=== PATIENT | male | born 1980 | race Caucasian/White ===

== ENCOUNTER 2019-10-12 16:14 | Inpatient (IN) | payer MEDICAID, SELFPAY ==
[~2019-10-12] VITALS: Ht 165.1 cm; Wt 68.5 kg
[2019-10-12 16:21] VITALS: BP_SYST 140
--- NOTE | 2019-10-12 17:01 | NUR ---
Patient to ER bed 8 to gown for evaluation. Side rails up. Report given to Amy MACK.
--- NOTE | 2019-10-12 17:10 | NUR ---
Pt. presents to the ED BLS with c/o SOB and cough x3 days. He was sent to ED for eval by PMD. Pt. A&Ox4. Cap refill <4 seconds. Pt. denies n/v/d and is afebrile at this time. Pt.'s temp was 99.7 and states that he took Tylenol prior to visit.
--- NOTE | 2019-10-12 17:11 | NUR ---
ROSELYN Navarrete at bedside examining patient.
[2019-10-12] MEDS ORDERED: NACL 0.9% 1,000 ML IV ONE ×2 (17:15→20:45)
--- NOTE | 2019-10-12 17:15 | NUR ---
20 G angiocath placed to the left brachial artery. Pt. placed on 3L nasal cannula and improvment in 02 sat improved from 80s to now 99%
[2019-10-12 17:58] LABS: HEMATOCRIT 35.6 % (36-54); HEMOGLOBIN 11.9 g/dL (14.0-18.0); MEAN CORPUSCULAR HEMOGLOBIN 32 pg (27-31); MEAN CORPUSCULAR HGB CONC 34 % (32-36); MEAN CORPUSCULAR VOLUME 97 fL (79.0-98.0); PLATELET COUNT (AUTO) 210 K/uL (130-430); RED BLOOD CELL COUNT(AUTO) 3.69 MIL/uL (4.2-6.2); RED CELL DISTRIBUTION WIDTH 14.1 % (9.0-15.0); WHITE BLOOD COUNT (AUTO) 16.5 K/uL (4.8-10.8)
[2019-10-12] MEDS ORDERED: IOHEXOL 350 mgI/mL, 150 ML INFUS..BTL IV ONE (18:06)
[2019-10-12] MEDS ORDERED: HYDR20TA PO (18:18)
[2019-10-12] MEDS ORDERED: HYD10 PO (18:18)
[2019-10-12] MEDS ORDERED: MERCAP50 PO (18:21)
[2019-10-12] MEDS ORDERED: ALBU2.5V7 INH (18:22)
--- NOTE | 2019-10-12 18:22 | NUR ---
Medication reconciliation completed with information provided by Patient. Any prior medication reconciliation on file was reviewed and corrected.
[2019-10-12 18:39] LABS: BAND % (MANUAL) 13 % (0-6); BASOPHILS % (MANUAL) 0 % (0-2); EOSINOPHILS % (MANUAL) 0 % (0-7); LYMPHOCYTES % (MANUAL) 6 % (20-46); MONOCYTES % (MANUAL) 4 % (0-11)
[2019-10-12 18:59] LABS: ANION GAP 10 (5-15); CALCIUM 7.1 mg/dL (8.4-11.0); CHLORIDE 108 mmol/L (98-107); CREATININE 1.16 mg/dL (0.55-1.30); GLUCOSE 102 mg/dL (70-99); SODIUM SERUM 139 mmol/L (136-145); UREA NITROGEN, BLOOD 8 mg/dL (8-21)
[2019-10-12 19:01] LABS: GFR AFRICAN AMERICAN 89 mL/min (>90); POTASSIUM 2.9 mmol/L (3.5-5.1)
[2019-10-12 19:11] LABS: ASPARTATE AMINOTRANSFERASE 36 U/L (10-37); TOTAL BILIRUBIN 0.6 mg/dL (0.0-1.0)
[2019-10-12 19:12] LABS: ALANINE AMINOTRANSFERASE 30 U/L (12-78); ALBUMIN 2.5 g/dL (3.4-4.8)
[2019-10-12] MEDS ORDERED: POTASSIUM CHLORIDE 20 MEQ TAB.PRT.SR PO ONE (19:15)
[2019-10-12] MEDS ORDERED: CLINDAMYCIN 900 mg/50mL D5W 50 ML IV ONE (20:30)
[2019-10-12] MEDS ORDERED: cefTRIAXone 1 GM in D5W 50 ML IV ONE (20:30)
[2019-10-12] MEDS ORDERED: ACETAMINOPHEN 500 MG TABLET PO ONE (20:30)
[2019-10-12] MEDS ORDERED: cefTRIAXone 1 GM VIAL ONE (20:50)
--- NOTE | 2019-10-12 21:00 | NUR ---
# 20 gauge angiocath placed to RT upper arm. Use of asceptic technique. Opsite placed over site. Blood return noted. Flushed with 10 cc of normal saline. No evidence of infiltration noted. Patient tolerated well.
--- NOTE | 2019-10-12 21:10 | NUR ---
Patient will be admitted to care of Dr. Soto. Admitted to Telemetry unit. Belongings list completed. Complete and up to date summary report printed. SBAR report to be given at bedside with opportunity for questions.
--- NOTE | 2019-10-12 22:28 | NUR ---
ADMIT NOTE Received pt from ER to the floor with a diagnosis of sepsis. Admission process initiated. patient oriented to pain management, safety and call light-teach back done.
--- NOTE | 2019-10-12 22:30 | NUR ---
Opening notes Patient is resting in bed. Walks with steady gait. No assistance required. No signs of distress noted. Breathing even and unlabored. O2 sat 100% on room air. IV patent and intact, currently infusing NS bolus. Oriented patient to room and call light. Patient verbalized understanding. Patient asking about home medication hydrocortisone, and has not taken today. Will inform MD. Call light with the patient. Safety precautions in place.
[2019-10-12] MEDS: AZITHROMYCIN 500 MG in NS 250 ML IV SCH (23:15)
[2019-10-12 23:26] VITALS: BP_SYST 107
--- NOTE | 2019-10-12 23:30 | NUR ---
Spoke to Dr. Figueroa informed MD about patient's home medication. Okay to give one dose now.
[2019-10-12] MEDS ORDERED: HYDROCORTISONE 10 MG TABLET (CORTEF) PO ONE (23:45)
[2019-10-12] MEDS ORDERED: MERCAPTOPURINE 50 MG TABLET PO ONE (23:45)
[2019-10-13] VITALS (7 sets, daily range): BP systolic 102–111
[2019-10-13] MEDS ORDERED: PIPERACILLIN/TAZOBACTAM 3.375 GM/VIAL (ZOSYN) IV ONE (00:09)
[2019-10-13] MEDS ORDERED: AZITHROMYCIN 500 MG/VIAL (ZITHROMAX) IV ONE (00:09)
--- NOTE | 2019-10-13 00:32 | NUR ---
CONSULT: CONSULT CALLED FOR DR. KNIGHT I SPOKE WITH FRANKLYN ROTHMAN REASON FOR CONSULT: PUI REQUESTING CONSULT: DR. HARTMANN COMMUNITY EDUCATION SPECIALIST PHONE NUMBER: [phone]
[2019-10-13] MEDS: PIPERACILLIN/TAZO 3.375/DEX-IS 50 ML IV SCH ×4 (00:33→18:02)
[2019-10-13] MEDS: NACL 0.9% 1,000 ML IV SCH ×3 (00:34→18:02)
--- NOTE | 2019-10-13 01:00 | NUR ---
RN rounds Patient resting in bed. Complaining of headache and ear ache. PRN pain medication given. Educated the action and side effects of medications. Patient tolerated well. Continuous pulse ox placed on patient. O2 sat 97%. Emptied 800 ml from urinal. Provided patient with apple juice and jello. No other needs. Call light with the patient. Safety precautions in place.
[2019-10-13] MEDS: HYDROcodone/ACETAMIN 5-325 MG TAB (NORCO/ VICODIN) PO PRN ×5 (01:03→22:14)
--- NOTE | 2019-10-13 03:00 | NUR ---
RN rounds Patient is resting in bed. No signs of distress noted. Breathing even and unlabored. IVF infusing well. No needs at this time. Call light with the patient. Safety precautions in place.
--- NOTE | 2019-10-13 05:00 | NUR ---
RN rounds Patient in bed, watching TV. No signs of distress noted. Breathing even and unlabored. IVF infusing well. No needs at this time. Call light with the patient. Safety precautions in place.
--- NOTE | 2019-10-13 05:55 | NUR ---
DR. LAZO IS AWARE OF THE CONSULT I PAGED HIM AND HE CALLED DONNELL
--- NOTE | 2019-10-13 06:46 | NUR ---
Closing notes Patient is resting in bed. No signs of distress noted. Breathing even and unlabored. IV patent and intact, infusing ABX. Patient complains of headache, PRN pain medication given. Educated the action and side effects of medications. Patient verbalized understanding and tolerated well. Provided patient with orange juice and ice water. All needs met throughout the shift. Call light with the patient. Safety precautions in place. Will endorse care to day shift RN.
[2019-10-13 07:17] LABS: BASOPHILS % (AUTO) 0.3 % (0.0-2.0); EOSINOPHILS % (AUTO) 0.1 % (0.0-4.0); HEMATOCRIT 35.3 % (36-54); HEMOGLOBIN 11.9 g/dL (14.0-18.0); LYMPHOCYTES # (AUTO) 0.4 K/uL (1.0-5.5); LYMPHOCYTES % (AUTO) 2.6 % (20.5-51.5); MEAN CORPUSCULAR HEMOGLOBIN 32 pg (27-31); MEAN CORPUSCULAR HGB CONC 34 % (32-36); MEAN CORPUSCULAR VOLUME 96 fL (79.0-98.0); MONOCYTES # (AUTO) 1.2 K/uL (0.0-1.0); MONOCYTES % (AUTO) 7.7 % (1.7-9.3); NEUTROPHILS # (AUTO) 14.3 K/uL (1.8-7.7); NEUTROPHILS % (AUTO) 89.3 % (40.0-70.0); PLATELET COUNT (AUTO) 216 K/uL (130-430)
[2019-10-13 07:30] LABS: ALBUMIN 2.5 g/dL (3.4-4.8); CALCIUM 7.3 mg/dL (8.4-11.0); CREATININE 1.18 mg/dL (0.55-1.30); POTASSIUM 3.4 mmol/L (3.5-5.1); TOTAL BILIRUBIN 0.8 mg/dL (0.0-1.0)
[2019-10-13] MEDS ORDERED: MERCAPTOPURINE 50 MG PO SCH (09:00)
--- NOTE | 2019-10-13 09:30 | NUR ---
nonproductive cough noted. patient requesting inhaler and cough medicine. pt using inhaler at home. paged MD de luna. awaited to callback
[2019-10-13] MEDS: HYDROCORTISONE 10 MG TABLET (CORTEF) PO SCH ×2 (10:15→20:07)
[2019-10-13] MEDS ORDERED: LINEZOLID 300 ML IV ONE (11:00)
--- NOTE | 2019-10-13 11:14 | NUR ---
Case mgt: Attempted to call pt's room for DCPA information (Covid-pending)-Called room ext [phone] [phone] but no answer and nurse Hannah unavailable to s/w on phone--will call back later--BLAYNE MACK
--- NOTE | 2019-10-13 11:39 | NUR ---
MRSA SAMPLE COLLECTED AND SENT TO LAB. MRSA SCREEN NARES.
--- NOTE | 2019-10-13 12:08 | NUR ---
Case mgt:Called pt in room (Covid pending)-pt is alert/oriented x3--lives at home with parents--independent with ADLs--drives self--dc plan is to go home with parents at discharge--f/u for dc planning needs-- RN
--- NOTE | 2019-10-13 13:02 | NUR ---
Dietitian Recommendations *Recommend continuing Cardiac diet per MD orders. *Recommend: Ensure Enlive BID. ONS will provide additional 700 kcal and 40gm protein daily. Please see Nutrition F/U note for details. ORACIO COLLIER
--- NOTE | 2019-10-13 15:50 | NUR ---
Patient is walking in side the room. went to the restroom. voided and have bm verbalized loose. hx of IBS.
[2019-10-13] MEDS ORDERED: guaiFENesin ER 600 MG TAB PO SCH (16:00)
[2019-10-13] MEDS ORDERED: ALBUTEROL MDI INH PRN (16:00)
--- NOTE | 2019-10-13 16:03 | NUR ---
MD DRUMMOND ( FREIGHT COORDINATOR)IS HERE. INFORMED ABOUT PATIENT CONCERNED. NEW ORDER RECEIVED AND CARRIED OUT.
[2019-10-13] MEDS ORDERED: POTASSIUM CHLORIDE 20 MEQ TAB.PRT.SR PO ONE (16:30)
[2019-10-13] MEDS ORDERED: ALBUTEROL MDI INHALATION 8 GM INH INH PRN (16:45)
[2019-10-13] MEDS ORDERED: ALBUTEROL SULFATE 0.083% 2.5 MG/3 ML VIAL.NEB INH PRN (17:00)
[2019-10-13] MEDS ORDERED: guaiFENesin ER 600 MG TAB PO ONE (17:00)
[2019-10-13] MEDS ORDERED: BENZONATATE 100 MG CAPSULE (TESSALON) PO ONE (17:00)
--- NOTE | 2019-10-13 17:00 | NUR ---
TB GOLD BLOOD ORDERED 1204 ROUTINE. PULP COOKER CHANGED TIME T0 1600. BLOOD NOT DRAWN NOR NOTIFY NURSE ABOUT THE CHANGE.
--- NOTE | 2019-10-13 17:30 | NUR ---
nishant Cedeño. waiting to callback.
--- NOTE | 2019-10-13 18:03 | NUR ---
MD CHAVIRA INFORMED ABOUT THE INCIDENT. STATED MAKE SURE WILL DRAW TOMORROW MORNING THE TB GOLD.
[2019-10-13] MEDS: ALBUTEROL SULFATE 0.083% 2.5 MG/3 ML VIAL.NEB INH SCH (19:00)
--- NOTE | 2019-10-13 19:00 | NUR ---
ALL NEEDS METS. NO S/S OF DISTRESS, VITAL SIGN STABLE, AFEBRILE. WILL ENDORSED TO INCOMING NURSE.
--- NOTE | 2019-10-13 19:30 | NUR ---
Opening notes Received report. Patient is resting in bed. No signs of distress noted. Breathing even and unlabored. IV patent and intact, infusing fluids. Patient requesting water. Will bring in. No other needs. Call light with the patient. Safety precautions in place.
[2019-10-13] MEDS: LINEZOLID 300 ML IV SCH (20:03)
--- NOTE | 2019-10-13 20:15 | NUR ---
Medications given. Educated the action and side effects of medications. Patient verbalized understanding and tolerated well. Provided patient with ice water and orange juice. No other needs. Informed patient that a sputum sample is needed. But patient is unable to produce any sputum, mostly saliva. No other needs. Call light with the patient. Safety precautions in place.
[2019-10-13] MEDS: AZITHROMYCIN 500 MG in NS 250 ML IV SCH (22:15)
--- NOTE | 2019-10-13 22:30 | NUR ---
RN rounds Patient resting in bed. Complaining of headache. PRN pain medication given. Educated the action and side effects of medications. Patient verbalized understanding and tolerated well. No other needs. Call light with the patient. Safety precautions in place.
--- NOTE | 2019-10-14 00:30 | NUR ---
RN rounds Patient resting in bed. Watching TV. Patient complaining it is too hot. Temperature adjusted. VSS. No other needs. Call light with the patient. Safety precautions in place.
[2019-10-14 00:45] VITALS: BP_SYST 108
[2019-10-14] MEDS: PIPERACILLIN/TAZO 3.375/DEX-IS 50 ML IV SCH ×4 (00:45→17:54)
--- NOTE | 2019-10-14 02:45 | NUR ---
RN rounds Patient is resting in bed. No signs of distress noted. Breathing even and unlabored. IVF infusing well. No needs. Call light with the patient. Safety precautions in place.
--- NOTE | 2019-10-14 04:30 | NUR ---
RN rounds Patient resting in bed. No signs of distress noted. Breathing even and unlabored. IVF infusing well. Provided patient with ice water. No other needs. Call light with the patient. Safety precautions in place.
[2019-10-14] MEDS: NACL 0.9% 1,000 ML IV SCH (05:55)
[2019-10-14] MEDS: HYDROcodone/ACETAMIN 5-325 MG TAB (NORCO/ VICODIN) PO PRN ×3 (05:56→21:05)
--- NOTE | 2019-10-14 06:38 | NUR ---
Closing notes Patient is resting in bed. No signs of distress noted. Breathing even and unlabored. IV patent and intact, infusing IVF. Patient complains of headache, PRN pain medication given. Educated the action and side effects of medications. Patient verbalized understanding and tolerated well. All needs met throughout the shift. Call light with the patient. Safety precautions in place. Will endorse care to day shift RN.
[2019-10-14] MEDS: ALBUTEROL SULFATE 0.083% 2.5 MG/3 ML VIAL.NEB INH SCH ×4 (07:00→19:00)
--- NOTE | 2019-10-14 07:38 | NUR ---
OPENING NOTE Patient resting in the bed. No acute distress. Denied of pain at this time. Skin warm and dry to touch. IV intact to PRISCILLA and SL to DEUCE, no redness, no swelling, patent. On NS at 100ml/hr, infusing well. Discussed the safety issue, use call light when needs help, and plan of care, verbally understanding. Safety measure maintained. Call light within reached. Bed locked in low position, side rails up. Refused bed alarm, risk and benefit explained, verbally understanding. Isolation maintained. Will continue to monitor.
[2019-10-14 07:50] VITALS: BP_SYST 117
[2019-10-14] MEDS: LINEZOLID 300 ML IV SCH ×2 (09:52→20:35)
[2019-10-14] MEDS: HYDROCORTISONE 10 MG TABLET (CORTEF) PO SCH ×2 (09:53→20:35)
[2019-10-14] MEDS: guaiFENesin ER 600 MG TAB PO SCH ×2 (09:53→20:35)
[2019-10-14] MEDS: BENZONATATE 100 MG CAPSULE (TESSALON) PO SCH ×2 (09:53→20:35)
--- NOTE | 2019-10-14 09:55 | NUR ---
AM SCHEDULE MED GIVEN, TOLERATED WELL.
[2019-10-14] MEDS ORDERED: MERCAPTOPURINE 50 MG PO SCH (10:08)
--- NOTE | 2019-10-14 10:55 | NUR ---
SEEN BY SONNY LÓPEZ.
[2019-10-14] MEDS ORDERED: MERCAPTOPURINE 50 MG PO ONE (11:00)
--- NOTE | 2019-10-14 11:45 | NUR ---
SEEN BY HENRIETTA GARDNER.
[2019-10-14] MEDS ORDERED: ALBMDI INH (11:56)
[2019-10-14 12:00] VITALS: BP_SYST 108
--- NOTE | 2019-10-14 13:54 | NUR ---
NORCO GIVEN Patient c/o generalized pain 5/10, [place] 5/325mg 1 tab given as ordered. Patient resting in the bed. No acute distress. IV intact, IVF infusing well. Safety measure maintained. Call light within reached. Continue on isolation. Continue to monitor.
--- NOTE | 2019-10-14 15:10 | NUR ---
IV LEAKAGE Noted IV leaking to PRISCILLA, removed the IV, tip intact, no bleeding, dressing applied. Connected the IVF to DEUCE, no redness, no swelling, no drainage. Isolation maintained. Call light within reached. Bed locked in low position, side rails up. Continue to monitor.
--- NOTE | 2019-10-14 15:17 | NUR ---
DC PLANNING Received msg from Shannen @ [place], ph [phone], wants update on pt status. Called & left msg with pt update.
[2019-10-14 16:00] VITALS: BP_SYST 112
--- NOTE | 2019-10-14 17:00 | NUR ---
ROUND Patient resting in the bed and talking to the phone. No acute distress. IV intact, IVF infusing well. Safety measure maintained. Call light within reached. Continue on isolation. Continue to monitor.
--- NOTE | 2019-10-14 18:50 | NUR ---
CLOSING NOTE Patient resting in the bed. No acute distress. Denied of pain at this time. Skin warm and dry to touch. IV intact to DEUCE, no redness, no swelling, patent. On NS at 100ml/hr, infusing well. All needs met. Safety measure maintained. Call light within reached. Bed locked in low position, side rails up. Refused bed alarm, risk and benefit explained, verbally understanding. Isolation maintained. Will endorse to night nurse.
[2019-10-14 20:00] VITALS: BP_SYST 110
[2019-10-14] MEDS: AZITHROMYCIN 500 MG in NS 250 ML IV SCH (23:15)
[2019-10-15] VITALS: BP_SYST 97
[2019-10-15] MEDS: HYDROcodone/ACETAMIN 5-325 MG TAB (NORCO/ VICODIN) PO PRN ×5 (01:41→21:36)
[2019-10-15] MEDS: PIPERACILLIN/TAZO 3.375/DEX-IS 50 ML IV SCH ×4 (05:50→18:40)
[2019-10-15 07:55] VITALS: BP_SYST 110
--- NOTE | 2019-10-15 07:55 | NUR ---
INITIAL ROUNDS Received pt AAOx4, no s/s resp distress, pt has sporadic non-productive cough. Pt informed that we need a sputum culture. Pt on Droplet isolation precautions for R/O Covid 19. Plan of carre for the day reviewed with pt-pt verbalized his understanding. IVF infusing well to DEUCE at ordered rate with no s/s infiltration to site. Pain management, disease process, isolation precautions, skin and safety discussed-teach back done. Call light within reach.
[2019-10-15] MEDS: MERCAPTOPURINE 50 MG PO SCH (09:00)
[2019-10-15] MEDS: ALBUTEROL SULFATE 0.083% 2.5 MG/3 ML VIAL.NEB INH SCH ×3 (09:05→19:00)
[2019-10-15] MEDS: LINEZOLID 300 ML IV SCH ×2 (10:13→21:36)
[2019-10-15] MEDS: BENZONATATE 100 MG CAPSULE (TESSALON) PO SCH ×2 (10:13→21:36)
[2019-10-15] MEDS: HYDROCORTISONE 10 MG TABLET (CORTEF) PO SCH ×2 (10:13→21:36)
[2019-10-15] MEDS: guaiFENesin ER 600 MG TAB PO SCH ×2 (10:13→21:36)
[2019-10-15] MEDS: NACL 0.9% 1,000 ML IV SCH ×2 (11:09→21:51)
[2019-10-15 12:45] VITALS: BP_SYST 112
--- NOTE | 2019-10-15 13:55 | NUR ---
NEW IV Pt's IV to DEUCE no longer working, removed, no active bleeding. New IV placed to left hand, 22 gauge. Pt tolerated well. All precautions remain in place.
[2019-10-15 16:35] VITALS: BP_SYST 115
--- NOTE | 2019-10-15 17:01 | NUR ---
COVID 19 TEST covid 19 test done, Hanna MACK will take to the lab.
--- NOTE | 2019-10-15 18:45 | NUR ---
CLOSING NOTE Pt sitting up in bed eating his dinner. No s/s resp distress, no c/o pain or discomfort. IVF infusing well to left hand at ordered rate with no s/s infiltration to site. Droplet precautions maintained throughout shift. Pt given fresh ice water per request. Needs met, call light within reach.
[2019-10-15 19:50] VITALS: BP_SYST 130
--- NOTE | 2019-10-15 19:50 | NUR ---
INITIAL NOTE AT INITIAL ASSESSMENT, PATIENT IS RESTING IN BED, STABLE, NO SIGNS OF RESPIRATORY DISTRESS. PATIENT SUCCESSFULLY DEMONSTRATIONS USAGE OF CALL LIGHT AT THIS TIME. PATIENT VERBALIZES TOLERABLE PAIN AT THIS TIME. CALL LIGHT IS PLACED WITHIN REACH OF PATIENT. BED IS LOCKED, ALARMED, AND AT THE LOWEST LEVEL. FALL, SAFETY, RESPIRATORY, AND ISOLATION WILL BE TAKEN THROUGHOUT THE SHIFT.
--- NOTE | 2019-10-15 21:50 | NUR ---
NOTE SCHEDULED MEDICATION ARE GIVEN AT THIS TIME, PATIENT TOLERATED WELL. FRESH WATER PROVIDED. CALL LIGHT PLACED WITHIN REACH, BED IS LOCKED, AND AT THE LOWEST LEVEL.
[2019-10-15] MEDS: AZITHROMYCIN 500 MG in NS 250 ML IV SCH (23:20)
--- NOTE | 2019-10-15 23:50 | NUR ---
NOTE PATIENT IS SLEEPING, STABLE, NO SIGNS OF RESPIRATORY DISTRESS. CALL LIGHT PLACED WITHIN REACH, BED IS LOCKED, ALARMED, AND AT THE LOWEST LEVEL.
[2019-10-16] VITALS: BP_SYST 118
--- NOTE | 2019-10-16 01:50 | NUR ---
NOTE PATIENT IS SLEEPING, STABLE, NO SIGNS OF RESPIRATORY DISTRESS. CALL LIGHT PLACED WITHIN REACH, BED IS LOCKED, ALARMED, AND AT THE LOWEST LEVEL.
[2019-10-16] MEDS: HYDROcodone/ACETAMIN 5-325 MG TAB (NORCO/ VICODIN) PO PRN ×3 (04:40→22:52)
[2019-10-16] MEDS: PIPERACILLIN/TAZO 3.375/DEX-IS 50 ML IV SCH ×4 (05:17→18:30)
[2019-10-16] MEDS: NACL 0.9% 1,000 ML IV SCH ×2 (06:41→18:30)
[2019-10-16] MEDS: ALBUTEROL SULFATE 0.083% 2.5 MG/3 ML VIAL.NEB INH SCH ×4 (07:00→19:00)
--- NOTE | 2019-10-16 08:10 | NUR ---
AM ROUNDS: PATIENT AWAKE DURING ROUNDS. IV FLUIDS RUNNING AT LEFT ARM INTACT. AIRBORNE DROPLET CONTACT ISOLATION PRECAUTION RENDERED,PUI. NOT ANY RESPIRATORY DISTRESS. CONTINUE TO MONITOR.
[2019-10-16 08:43] VITALS: BP_SYST 130
[2019-10-16] MEDS: HYDROCORTISONE 10 MG TABLET (CORTEF) PO SCH ×2 (08:52→21:00)
[2019-10-16] MEDS: BENZONATATE 100 MG CAPSULE (TESSALON) PO SCH ×2 (08:52→21:00)
[2019-10-16] MEDS: LINEZOLID 300 ML IV SCH ×2 (08:52→21:00)
[2019-10-16] MEDS: guaiFENesin ER 600 MG TAB PO SCH ×2 (08:52→21:00)
[2019-10-16 10:47] VITALS: BP_SYST 130
--- NOTE | 2019-10-16 12:00 | NUR ---
LUNCH: LUNCH TRAY SERVED. NO OTHER COMPLAINED MADE.
[2019-10-16 12:20] VITALS: BP_SYST 118
--- NOTE | 2019-10-16 16:00 | NUR ---
RN ROUNDS: RESTING. NOT IN ANY RESPIRATORY DISTRESS.
[2019-10-16 16:30] VITALS: BP_SYST 107
[2019-10-16] MEDS: MERCAPTOPURINE 50 MG PO SCH (16:49)
--- NOTE | 2019-10-16 17:08 | NUR ---
Nutrition F/U 10/16/19 Admitting Diagnosis Sepsis Reviewed Pertinent Medical/Surgical Hx Medical Record Medical History Comment: Pt found w/: Sepsis w/ Lactic acidosis, Renal Failure, Pneumonia, Esophageal dilation, Worsening SOB, Franck Disease, Tachycardiac per MD notes. PMH: Pneumonia. 10/11: CXR: unremarkable. Subjective Information Pt is in isolation and pending Coronavirus PCR. RD placed phone call to pt's room 2x, no response. Per EMR, pt w/ 2-3# unintentional weight loss in 3 months and follows regular diet at home. Pt appears to have good appetite and was recorded to have eaten 100% of breakfast and lunch yesterday, 75% of dinner. Pt is overweight and is likely meeting adequate nutrition w/ current PO intake. Nutrition education is not yet appropriate. Current Diet Order/Nutrition Support Cardiac diet, Ensure Enlive BID x 3 day Patient/Significant Other Able To Verbalize Education Provided Not Indicated Pertinent Medications piperacillin/tazobactam Pertinent Labs 10/12 Na 140WNL, K 3.4L, BG 116H, BUN 6L, CRE 1.18WNL, WBC 16H, eGFR 72L Height (Feet) 5 feet Height (Inches) 5.00 inches Weight (Pounds) 151 pounds Weight (Calculated Kilograms) 68.777159 kilograms Patient Weight 68.492 kg Body Mass Index 25.12 kg/m2 %IBW 111 [place]/Adjusted Body Weight 136#/ 62 kg Recent Weight Change Yes - 2-3# wt loss in 3 months per EMR Weight Status Overweight Gastrointestinal Symptoms None Usual Diet At Home regular diet per EMR Skin Integrity Comment: Ryan scale: 21. No PIs/skin issues noted. No edema noted. Current % PO Good (75-100%) Estimated Energy Expenditure (kcals/day) 0092-6175 kcal/day (30-35 kcal/kg CBW for sepsis) Estimated Protein Required (g/day) 68-102gm/day (1-1.5gm/kg CBW for Renal failure/sepsis) Estimated Fluid Required (l/day) per MD (Renal Failure) Problem/Etiology/Signs/Symptoms Increased nutrient needs r/t metabolic demands AEB estimated calories and protein for sepsis/acute state. Expected Outcomes/Goals Monitor appetite and PO intake w/ goal of pt meeting at least 75% of estimated nutritional needs, labs trending WNL, normal GI function, skin integrity/wt maintenance. Dietitian Recommendations *Recommend continuing Cardiac diet per MD orders. *Recommend continuing Ensure Enlive BID. ONS will provide additional 700 kcal and 40gm protein daily. Follow Up Mod Risk: F/U in 3-5 days
--- NOTE | 2019-10-16 18:45 | NUR ---
END OF SHIFT: PATIENT ATE DINNER WELL. DENIES ANY PAIN THIS TIME. IV FLUIDS RUNNING WELL. CALL LIGHT WITH IN REACH. BED LOCKED AT LOWEST POSITION. NO ACUTE DISTRESS.
[2019-10-16 19:50] VITALS: BP_SYST 123
[2019-10-16] MEDS: AZITHROMYCIN 500 MG in NS 250 ML IV SCH (23:15)
--- NOTE | 2019-10-16 23:50 | NUR ---
NOTE PATIENT IS SLEEPING, STABLE, NO SIGNS OF RESPIRATORY DISTRESS. CALL LIGHT PLACED WITHIN REACH, BED IS LOCKED, ALARMED, AND AT THE LOWEST LEVEL.
[2019-10-17] VITALS: BP_SYST 119
--- NOTE | 2019-10-17 01:50 | NUR ---
NOTE PATIENT IS SLEEPING, STABLE, NO SIGNS OF RESPIRATORY DISTRESS. CALL LIGHT PLACED WITHIN REACH, BED IS LOCKED, ALARMED, AND AT THE LOWEST LEVEL.
[2019-10-17] MEDS: NACL 0.9% 1,000 ML IV SCH ×3 (02:22→23:09)
--- NOTE | 2019-10-17 03:50 | NUR ---
NOTE PATIENT IS SLEEPING, STABLE, NO SIGNS OF RESPIRATORY DISTRESS. CALL LIGHT PLACED WITHIN REACH, BED IS LOCKED, ALARMED, AND AT THE LOWEST LEVEL.
--- NOTE | 2019-10-17 05:15 | NUR ---
NOTE PATIENT IS SLEEPING, STABLE, NO SIGNS OF RESPIRATORY DISTRESS. CALL LIGHT PLACED WITHIN REACH, BED IS LOCKED, ALARMED, AND AT THE LOWEST LEVEL.
[2019-10-17] MEDS: PIPERACILLIN/TAZO 3.375/DEX-IS 50 ML IV SCH ×4 (06:12→18:03)
--- NOTE | 2019-10-17 06:56 | NUR ---
CLOSING NOTE PATIENT VERBALIZED PAIN WHEN COUGHING DURING THE NIGHT, HE VERBALIZED THAT NORCO HELPED A LOT WITH THE PAIN. PATIENT IS RESTING IN BED, STABLE, NO SIGNS OF RESPIRATORY DISTRESS. CALL LIGHT IS WITHIN REACH. BED IS LOCKED, ALARMED, AND AT THE LOWEST LEVEL. FALL, SAFETY, RESPIRATORY, AND ISOLATION PRECAUTIONS HAVE BEEN TAKEN THROUGHOUT THE SHIFT. WILL CONTINUE TO MONITOR CLOSING UNTIL SHIFT REPORT HAS BEEN GIVEN AT BEDSIDE TO AM NURSE.
[2019-10-17 07:16] LABS: BASOPHILS % (AUTO) 0.3 % (0.0-2.0); EOSINOPHILS # (AUTO) 0.1 K/uL (0.0-0.4); EOSINOPHILS % (AUTO) 1.7 % (0.0-4.0); HEMATOCRIT 34.3 % (36-54); HEMOGLOBIN 11.4 g/dL (14.0-18.0); LYMPHOCYTES # (AUTO) 1.5 K/uL (1.0-5.5); LYMPHOCYTES % (AUTO) 18.2 % (20.5-51.5); MEAN CORPUSCULAR HEMOGLOBIN 32 pg (27-31); MEAN CORPUSCULAR HGB CONC 33 % (32-36); MEAN CORPUSCULAR VOLUME 96 fL (79.0-98.0); MONOCYTES # (AUTO) 0.6 K/uL (0.0-1.0); NEUTROPHILS # (AUTO) 5.9 K/uL (1.8-7.7); NEUTROPHILS % (AUTO) 72.8 % (40.0-70.0); PLATELET COUNT (AUTO) 316 K/uL (130-430); RED BLOOD CELL COUNT(AUTO) 3.57 MIL/uL (4.2-6.2); RED CELL DISTRIBUTION WIDTH 14.5 % (9.0-15.0); WHITE BLOOD COUNT (AUTO) 8.1 K/uL (4.8-10.8)
[2019-10-17] MEDS: ALBUTEROL SULFATE 0.083% 2.5 MG/3 ML VIAL.NEB INH SCH ×3 (07:22→19:00)
--- NOTE | 2019-10-17 07:35 | NUR ---
Am Rounds: Patient awake during rounds. Iv fluids running at left hand intact. Call light with in reach. Bed locked at lowest position. No needs this time.Contact airborne and droplet precaution rendered.Covid PCR results still pending.
[2019-10-17 07:36] LABS: C-REACTIVE PROTEIN QUANT 8.7 mg/dL (0-0.5); CALCIUM 7.4 mg/dL (8.4-11.0); CREATININE 0.91 mg/dL (0.55-1.30)
[2019-10-17 08:15] LABS: POTASSIUM 2.8 mmol/L (3.5-5.1)
--- NOTE | 2019-10-17 08:40 | NUR ---
PAGED PAGED MANUELA BARRERA AT [phone] SPOKE WITH JAK.
[2019-10-17] MEDS: MERCAPTOPURINE 50 MG PO SCH (09:00)
[2019-10-17] MEDS: BENZONATATE 100 MG CAPSULE (TESSALON) PO SCH ×2 (09:00→20:49)
[2019-10-17] MEDS: guaiFENesin ER 600 MG TAB PO SCH ×2 (09:00→20:49)
[2019-10-17] MEDS: LINEZOLID 300 ML IV SCH ×2 (09:00→20:49)
[2019-10-17] MEDS: HYDROCORTISONE 10 MG TABLET (CORTEF) PO SCH ×2 (09:00→20:49)
[2019-10-17 09:15] VITALS: BP_SYST 104
[2019-10-17 10:23] LABS: ERYTHROCYTE SEDIMENTATION RATE 78 MM/HR (0-15)
[2019-10-17] MEDS ORDERED: POTASSIUM CHLORIDE 40 MEQ in NS 250 ML IV ONE (11:00)
[2019-10-17] MEDS: HYDROcodone/ACETAMIN 5-325 MG TAB (NORCO/ VICODIN) PO PRN ×2 (11:11→20:59)
[2019-10-17 12:00] VITALS: BP_SYST 111
[2019-10-17 15:30] VITALS: BP_SYST 115
--- NOTE | 2019-10-17 15:30 | NUR ---
K-rider: K-rider 40meq ivpb given as ordered. No adverse reactions noted during infusion.
--- NOTE | 2019-10-17 16:00 | NUR ---
ID ROUNDS: Dr Quiroz came and spoke to patient via his room phone.Updates and plan of care were discussed by ID with him.
--- NOTE | 2019-10-17 18:21 | NUR ---
End of Shift: Patient ate dinner. K-rider still on going.Call light with in reach. Bed locked at lowest position. No acute distress. Continue to monitor.
[2019-10-17 19:45] VITALS: BP_SYST 111
--- NOTE | 2019-10-17 21:00 | NUR ---
COVID-19 #2 NEGATIVE; DR. HARRINGTON COMMUNICATION DR. HARRINGTON HAS PAGED BACK AT THIS TIME, PATIENT'S NEGATIVE TEST RESULTS ARE COMMUNICATED. VERBALIZED TO ORDER CXR FOR THE MORNING, AND TO AWAIT FOR DR. HOWARD TO DECIDE IF HE WOULD LIKE TO D/C ISOLATION PRECAUTIONS IN THE MORNING. ORDER READ BACK, VERIFIED, ENTERED, AND WILL BE COMMUNICATED TO THE PATIENT IMMEDIATELY.
--- NOTE | 2019-10-17 23:45 | NUR ---
NOTE PATIENT IS SLEEPING, STABLE, NO SIGNS OF RESPIRATORY DISTRESS. CALL LIGHT PLACED WITHIN REACH, BED IS LOCKED, ALARMED, AND AT THE LOWEST LEVEL.
[2019-10-18] VITALS: BP_SYST 115
[2019-10-18] MEDS: PIPERACILLIN/TAZO 3.375/DEX-IS 50 ML IV SCH ×4 (00:08→17:50)
--- NOTE | 2019-10-18 01:45 | NUR ---
NOTE PATIENT IS SLEEPING, STABLE, NO SIGNS OF RESPIRATORY DISTRESS. CALL LIGHT PLACED WITHIN REACH, BED IS LOCKED, ALARMED, AND AT THE LOWEST LEVEL.
--- NOTE | 2019-10-18 02:45 | NUR ---
NOTE PATIENT IS SLEEPING, STABLE, NO SIGNS OF RESPIRATORY DISTRESS. CALL LIGHT PLACED WITHIN REACH, BED IS LOCKED, ALARMED, AND AT THE LOWEST LEVEL.
--- NOTE | 2019-10-18 04:45 | NUR ---
NOTE PATIENT IS SLEEPING, STABLE, NO SIGNS OF RESPIRATORY DISTRESS. CALL LIGHT PLACED WITHIN REACH, BED IS LOCKED, ALARMED, AND AT THE LOWEST LEVEL.
[2019-10-18] MEDS: HYDROcodone/ACETAMIN 5-325 MG TAB (NORCO/ VICODIN) PO PRN ×3 (04:54→16:50)
--- NOTE | 2019-10-18 05:10 | NUR ---
NOTE PRN MEDICATION FOR PAIN DUE TO PATIENT'S PAIN WHILE COUGHING. CALL LIGHT PLACED WITHIN REACH, BED IS LOCKED, AND AT THE LOWEST LEVEL.
--- NOTE | 2019-10-18 06:23 | NUR ---
CLOSING NOTE PATIENT SLEPT WELL THOUGHT THE SHIFT, SO SIGNS OF SHORTNESS OF BREATH NOTED. AT THIS TIME, PATIENT IS RESTING IN BED, STABLE, NO SIGNS OF RESPIRATORY DISTRESS. CALL LIGHT IS WITHIN REACH. BED IS LOCKED, ALARMED, AND AT THE LOWEST LEVEL. FALL, SAFETY, RESPIRATORY, AND ISOLATION PRECAUTIONS HAVE BEEN TAKEN THROUGHOUT THE SHIFT. WILL CONTINUE TO MONITOR CLOSING UNTIL SHIFT REPORT HAS BEEN GIVEN AT BEDSIDE TO AM NURSE.
[2019-10-18] MEDS: ALBUTEROL SULFATE 0.083% 2.5 MG/3 ML VIAL.NEB INH SCH ×4 (07:49→19:40)
[2019-10-18 08:05] LABS: BASOPHILS % (AUTO) 0.5 % (0.0-2.0); EOSINOPHILS # (AUTO) 0.1 K/uL (0.0-0.4); HEMATOCRIT 31.4 % (36-54); HEMOGLOBIN 10.6 g/dL (14.0-18.0); LYMPHOCYTES # (AUTO) 1.5 K/uL (1.0-5.5); LYMPHOCYTES % (AUTO) 22.6 % (20.5-51.5); MEAN CORPUSCULAR HEMOGLOBIN 33 pg (27-31); MEAN CORPUSCULAR HGB CONC 34 % (32-36); MEAN CORPUSCULAR VOLUME 97 fL (79.0-98.0); MONOCYTES # (AUTO) 0.4 K/uL (0.0-1.0); MONOCYTES % (AUTO) 5.6 % (1.7-9.3); NEUTROPHILS # (AUTO) 4.5 K/uL (1.8-7.7); NEUTROPHILS % (AUTO) 69.3 % (40.0-70.0); PLATELET COUNT (AUTO) 312 K/uL (130-430); RED BLOOD CELL COUNT(AUTO) 3.24 MIL/uL (4.2-6.2); RED CELL DISTRIBUTION WIDTH 14.7 % (9.0-15.0); WHITE BLOOD COUNT (AUTO) 6.5 K/uL (4.8-10.8)
[2019-10-18] MEDS: guaiFENesin ER 600 MG TAB PO SCH ×2 (08:32→20:55)
[2019-10-18] MEDS: HYDROCORTISONE 10 MG TABLET (CORTEF) PO SCH ×2 (08:32→20:54)
[2019-10-18] MEDS: BENZONATATE 100 MG CAPSULE (TESSALON) PO SCH ×2 (08:32→20:54)
[2019-10-18] MEDS: LINEZOLID 300 ML IV SCH ×2 (08:32→20:53)
[2019-10-18] MEDS: MERCAPTOPURINE 50 MG PO SCH (08:32)
[2019-10-18] MEDS: NACL 0.9% 1,000 ML IV SCH ×2 (08:33→19:09)
[2019-10-18 08:35] VITALS: BP_SYST 109
--- NOTE | 2019-10-18 08:35 | NUR ---
Opening note/Medication patient resting in bed, a/ox4, complaining of pain to right flank area especially when coughing, assessment complete, IV line is patent and infusing well, educated the patient telephone interceptor operator light system and plan of care, he verbalized understanding, educated the patient on scheduled and PRN medication, uses and potential side effects, he verbalized understanding and tolerated well, continuing to monitor the patient, bed in lowest position, two side rails up, call light within reach, fall, aspiration and isolation precautions in place.
[2019-10-18 08:43] LABS: C-REACTIVE PROTEIN QUANT 6.2 mg/dL (0-0.5); CALCIUM 7.3 mg/dL (8.4-11.0); POTASSIUM 3.2 mmol/L (3.5-5.1)
[2019-10-18 08:58] LABS: ERYTHROCYTE SEDIMENTATION RATE 65 MM/HR (0-15)
--- NOTE | 2019-10-18 11:42 | NUR ---
RN Rounds/Medication patient ambulated to the restroom, states mild but tolerable pain a this time, IV line is patent and infusing well, educated the patient on scheduled medication uses and potential side effects, he verbalized understanding, provided with ice water per his request, continuing to monitor the patient, bed in lowest position, two side rails up, call light within reach, fall, aspiration and isolation precautions in place.
[2019-10-18 12:00] VITALS: BP_SYST 129
[2019-10-18 16:24] VITALS: BP_SYST 116
--- NOTE | 2019-10-18 16:55 | NUR ---
RN Rounds/Medication patient resting in bed, awake, patient requested pain medication and water, provided with ice water, educated the patient on PRN medication uses and potential side effects, he verbalized understanding and tolerated well, no other needs at this time, IV line is patent and infusing well, continuing to monitor patient, bed in lowest position, two side rails up, call light within reach, fall and aspiration precautions in place - isolation precautions discontinued per Dr. Veliz - patient to change room assignment this evening, will follow up.
--- NOTE | 2019-10-18 17:16 | NUR ---
Home medication patient's family brought in extra of his home medication - medication taken to pharmacy for verification and dispensing.
--- NOTE | 2019-10-18 17:50 | NUR ---
Transfer of Care to Ghazal MACK, SBAR report given.
--- NOTE | 2019-10-18 18:00 | NUR ---
assumed care rec patien awake alert with ivf infusing well on the l hand. no infiltration noted. ambulates to the br and ayla well. denies pain at this time. due abx was given. no osb noted. call light withn reached.
--- NOTE | 2019-10-18 19:20 | NUR ---
RECEIVED REPORT FROM GURMEET HAILE. Pt AAOX4, PLEASANT, OOB TO BRP, HAD A BM- COLOR SOFT, BROWN. NAD NOTED. WALKED BACK TO BED W/O ASSIST, GAIT STEADY AND ERECT.
[2019-10-18 19:48] VITALS: BP_SYST 103
--- NOTE | 2019-10-18 22:20 | NUR ---
MED PASS DONE. Pt TOLERATED WELL. REVIEW AND EDUCATION OF MEDS. Pt STATED "AT LEAST MY COUGHING STOPPED" RE-ITERATED THE PURPOSE OF TESSALON PEARLS. Pt VERBALIZED UNDERSTANDING. IN BED WATCHING TV, PLEASANT, CALM. NAD NOTED.
[2019-10-18 23:16] VITALS: BP_SYST 127
[2019-10-19] MEDS: PIPERACILLIN/TAZO 3.375/DEX-IS 50 ML IV SCH ×2 (01:02→06:31)
[2019-10-19] MEDS: HYDROcodone/ACETAMIN 5-325 MG TAB (NORCO/ VICODIN) PO PRN (01:08)
--- NOTE | 2019-10-19 01:25 | NUR ---
Pt. AWAKE W/ C/O BURNING LIKE PAIN 5/10 TO R UPPER BACK AREA, STATES THE PAIN IS WORST W/ COUGH. PO MED GIVEN FOR PAIN. Pt EDUCATION ON SLOW DEEP BREATHING EXERCISES, AND TO APPLY SAME TECHNIQUE W/ RESP Tx, Pt VERBALIZED UNDERSTANDING. NAD NOTED, WATCHING TV.
[2019-10-19 04:00] VITALS: BP_SYST 131
--- NOTE | 2019-10-19 04:51 | NUR ---
ON ROUNDS Pt ASLEEP, EASY AROUSAL, VOICES NO C/O PAIN OR DISCOMFORT.
[2019-10-19] MEDS: NACL 0.9% 1,000 ML IV SCH (06:26)
[2019-10-19] MEDS: LINEZOLID 300 ML IV SCH (06:28)
[2019-10-19] MEDS: ALBUTEROL SULFATE 0.083% 2.5 MG/3 ML VIAL.NEB INH SCH ×2 (07:00→11:51)
[2019-10-19 07:17] LABS: IMMUNOGLOBULIN G, SERUM 933 mg/dL (603-1613); IMMUNOGLOBULIN M, SERUM 166 mg/dL (20-172)
--- NOTE | 2019-10-19 07:25 | NUR ---
AM MED PASS DONE. Pt AAOX4, VOICED NO C/O PAIN OR DISCOMFORT. REPORT TO AM FREDERICK PARMAR.
[2019-10-19 08:00] VITALS: BP_SYST 125
--- NOTE | 2019-10-19 08:37 | NUR ---
alert, oriented, and appropriate " light sleeper, did not sleep that much, too much noise, no cough, denied pain. vss
[2019-10-19 08:42] VITALS: BP_SYST 131
[2019-10-19] MEDS ORDERED: CIPR-211 PO (09:00)
[2019-10-19] MEDS ORDERED: DOXY100T2 PO (09:00)
[2019-10-19] MEDS: HYDROCORTISONE 10 MG TABLET (CORTEF) PO SCH (09:31)
[2019-10-19] MEDS: guaiFENesin ER 600 MG TAB PO SCH (09:31)
[2019-10-19] MEDS: BENZONATATE 100 MG CAPSULE (TESSALON) PO SCH (09:32)
[2019-10-19] MEDS: MERCAPTOPURINE 50 MG PO SCH (10:31)
[2019-10-19 12:00] VITALS: BP_SYST 118
[2019-10-19 12:10] VITALS: BP_SYST 119
--- NOTE | 2019-10-19 12:16 | NUR ---
DC Planning: Updated EFRAIN Maher /[place] # [phone]: the order to dc home, to f/u with appropriate md for bronchoscopy to rule out cancer. NO HH f/u ordered at this time. Nika stated she is making arrangement/appointment for bronchoscopy eval. She will call the pt with the appointment. -- FREDERICK Goyal made aware.
[2019-10-19 12:29] VITALS: BP_SYST 125
--- NOTE | 2019-10-19 13:29 | NUR ---
remains alert, oriented, and very appropriate, non-productive cough still. HL out, monitor off, home meds include- MERCAPTOPURINE (4 1/2 tabs left in the bottle, PHENERGAN COUGH SYRUP, 210CC LEFT, and one bottle of Cortef, po, all given to the patient, personal belongings took home. patient is discharged to home when ride arrives
[2019-10-20 19:12] LABS: IMMUNOGLOBULIN E,TOTAL 173 IU/mL (6-495)
== END 2019-10-19 14:00 | disposition home or self-care (01) | DRG 720 ==
LOC: EEVIPCON 16:14 → SED 16:14 → STU 21:09 → EEVIPCON 21:09 → STU 22:25
PROVIDERS: ADMIT Internal Medicine Hospice and Palliative Medicine; ATTEND Internal Medicine Hospice and Palliative Medicine
DX: A41.9 Sepsis, unspecified organism (principal); J69.0 Pneumonitis due to inhalation of food and vomit; J85.0 Gangrene and necrosis of lung; E43 Unspecified severe protein-calorie malnutrition; M31.30 Wegener's granulomatosis without renal involvement; D89.9 Disorder involving the immune mechanism, unspecified; E87.2 Acidosis; E27.1 Primary adrenocortical insufficiency; K75.4 Autoimmune hepatitis; N19 Unspecified kidney failure; E87.6 Hypokalemia; R09.02 Hypoxemia; E83.51 Hypocalcemia; D64.9 Anemia, unspecified; E88.09 Other disorders of plasma-protein metabolism, not elsewhere classified; K22.8 Other specified diseases of esophagus; R91.8 Other nonspecific abnormal finding of lung field; Z87.01 Personal history of pneumonia (recurrent); Z79.899 Other long term (current) drug therapy; Z88.1 Allergy status to other antibiotic agents; Z88.8 Allergy status to other drugs, medicaments and biological substances; Z03.818 Encounter for observation for suspected exposure to other biological agents ruled out; Z68.25 Body mass index [BMI] 25.0-25.9, adult
CPT/HCPCS: 36415; 71045; 71275; 80048; 80053; 82728; 82784; 82785; 83605; 83880; 84484; 85007; 85025; 85027; 85379; 85651-TC; 86140; 86480; 86635; 87040-TC; 87081; 93005; 94640; 96361; 96365; 96367; 99285; G0378; J0456; J0696; J2020; J2543; J3480; J3490; J7030; J7050; J7060; J7613; Q9967; U0002

== ENCOUNTER 2020-06-09 06:45 | Day surgery (SDC) | payer MEDICAID, SELFPAY ==
[~2020-06-09] VITALS: Ht 165.1 cm; Wt 74.8 kg
[~2020-06-09 06:45] MED LIST: ALBMDI INH; ALBU2.5V7 INH; CIPR-211 PO; DOXY100T2 PO; HYD10 PO; HYDR20TA PO; MERCAP50 PO
[2020-06-09] MEDS ORDERED: SIMETHICONE 40 MG/0.6 ML ML ONE (08:09)
[2020-06-09] MEDS ORDERED: MEPERIDINE HCL/PF 100 MG/ML AMP ONE (08:10)
[2020-06-09] MEDS ORDERED: MIDAZOLAM HCL 5 MG/5 ML VIAL ONE (08:10)
[2020-06-09 12:47] VITALS: BP_SYST 118
== END 2020-06-09 11:00 | disposition home or self-care (01) ==
LOC: SDS 06:45 → SMU 06:45 → SDS 11:00
PROVIDERS: ATTEND Internal Medicine Gastroenterology
DX: K52.9 Noninfective gastroenteritis and colitis, unspecified (principal); D12.8 Benign neoplasm of rectum; K64.8 Other hemorrhoids; Z20.828 Contact with and (suspected) exposure to other viral communicable diseases; Z79.899 Other long term (current) drug therapy
CPT/HCPCS: 45380; 45385; 87045; 87046 ×2; 87177; 88305; 89055; 99152; 99153; G0378; J2175; J2250; U0003; 45384; 87230-TC